=== PATIENT | female | born 1960 | race Caucasian/White ===

== ENCOUNTER → 2017-09-19 | Outpatient (CLI) | payer OTHER ==
[~2017-09-19] MED LIST: ARIP10 PO; ARIP15 PO; ASPI325 PO; ATOR40TA PO; Aspir-Trin325 MG PO; BUPR150ER; CALCA600CH PO; CETI10 PO; CITA20 PO; CLON.5 PO; CLOP75 PO; FAMO20 PO; FLUO10 PO; IBUP200 PO; LAMO100 PO; LAMO25 PO; LISI5 PO; METO25 PO; METO50ER PO; NICO14TP; NICO21TP TOP; NITR.4SL SL; OMEPRAZOLE MAGN20 MG PO; OXYACE7.5T PO; PENVK250 PO; PROM25 PO; ROSU5 PO; RXOXYACE PO; RXPENVK250 PO; UKNOWN BP MED PO; Zantac150 MG PO
== END | disposition home or self-care (01) ==
LOC: LAB SHORT 12:35 → LAB 12:35
DX: N61.1 Abscess of the breast and nipple (principal); B95.8 Unspecified staphylococcus as the cause of diseases classified elsewhere
CPT/HCPCS: 87070; 87075; 87077; 87147; 87186; 87205

== ENCOUNTER 2018-07-03 09:13 | Day surgery (SDC) | payer OTHER ==
[~2018-07-03] VITALS: Ht 165.1 cm; Wt 69.3 kg
[~2018-07-03 09:13] MED LIST changes: +ACID REDUCER 1150 MG PO; +B Complex #11 EACH PO; +METO25ER PO
--- NOTE | 2018-07-03 11:16 | NUR ---
07/03/18 1116 Jenise Rose V SIGMOID MASS FOUND AT 20CM. TATTOOD WITH 1.5CC. BXS DONE ON MASS. NOT REMOVED D/T PT BEING ON PLAVIX.
--- NOTE | 2018-07-03 11:17 | NUR ---
07/03/18 1117 Jenise Rose. PRIOR TO PROCEDURE, DR. SHAW WAS INFORMED THAT PT DID NOT STOP PLAVIX. STATED HE IS AWARE AND HAD TOLD THE PT SHE DID NOT NEED TO STOP PLAVIX.
== END 2018-07-03 11:14 | disposition home or self-care (01) ==
LOC: ORSCSDS 09:13
PROVIDERS: Surgery
PROC: 3E0H8GC Introduction of Other Therapeutic Substance into Lower GI, Via Natural or Artificial Opening Endoscopic (ICD-10-PCS; principal; 2018-07-03 10:30)
PROC: 0DBN8ZX Excision of Sigmoid Colon, Via Natural or Artificial Opening Endoscopic, Diagnostic (ICD-10-PCS; principal; 2018-07-03 10:30)
DX: Z12.11 Encounter for screening for malignant neoplasm of colon (principal); Z86.010 Personal history of colon polyps; K63.5 Polyp of colon; K57.30 Diverticulosis of large intestine without perforation or abscess without bleeding; I10 Essential (primary) hypertension; I25.10 Atherosclerotic heart disease of native coronary artery without angina pectoris; E78.5 Hyperlipidemia, unspecified; F17.210 Nicotine dependence, cigarettes, uncomplicated; Z79.899 Other long term (current) drug therapy
CPT/HCPCS: 88305; J7120

== ENCOUNTER → 2018-07-29 | Outpatient (CLI) | payer OTHER ==
[2018-07-29 10:07] LABS: Adenovirus F 40/41 Not Detected (NOT DETECT); Astrovirus Not Detected (NOT DETECT); Campylobacter Sp Not Detected (NOT DETECT); Cryptosporidium Not Detected (NOT DETECT); Cyclospora Cayetanensis Not Detected (NOT DETECT); E. Coli O157 Not Detected (NOT DETECT); Entamoeba Histolytica Not Detected (NOT DETECT); Enteroaggregative E. coli-EAEC Not Detected (NOT DETECT); Enteropathogenic E. coli-EPEC Not Detected (NOT DETECT); Enterotoxigenic E. coli-ETEC Not Detected (NOT DETECT); Giardia Lamblia Not Detected (NOT DETECT); Norovirus GI/GII Not Detected (NOT DETECT); Plesiomonas Shigelloides Not Detected (NOT DETECT); Rotavirus A Not Detected (NOT DETECT); Salmonella Sp Not Detected (NOT DETECT); Sapovirus Not Detected (NOT DETECT); Shiga Toxin-prod E. coli-STEC Not Detected (NOT DETECT); Shigella/Enteroin E. coli-EIEC Not Detected (NOT DETECT); Vibrio Cholerae Not Detected (NOT DETECT); Vibrio Sp Not Detected (NOT DETECT); Yersinia Enterocolitica Not Detected (NOT DETECT)
== END | disposition home or self-care (01) ==
LOC: LAB 07:39 → LAB SHORT 07:39 → LAB FUT 07-28 13:50
PROVIDERS: Nurse Practitioner Family
DX: R10.9 Unspecified abdominal pain (principal); R19.7 Diarrhea, unspecified
CPT/HCPCS: 87507

== ENCOUNTER → 2018-08-15 | Outpatient (CLI) | payer OTHER ==
[2018-08-15 07:57] LABS: BASOPHILS ABSOLUTE AUTO 0.02 K/mm3 (0.00-0.23); BASOPHILS PERCENT AUTO 0 % (0-2); EOSINOPHILS ABSOLUTE AUTO 0.04 K/mm3 (0.00-0.68); EOSINOPHILS PERCENT AUTO 0 % (0-6); Hemoglobin 16.5 g/dL (11.5-16.0); IMMATURE GRAN ABSOLUTE AUTO 0.03 K/mm3 (0.00-0.10); IMMATURE GRAN PERCENT AUTO 0 % (0-1); LYMPHOCYTES ABSOLUTE AUTO 1.91 K/mm3 (0.84-5.20); LYMPHOCYTES PERCENT AUTO 21 % (21-46); MONOCYTES ABSOLUTE AUTO 0.91 K/mm3 (0.16-1.47); MONOCYTES PERCENT AUTO 10 % (4-13); Mean Corpuscular HGB 33.2 pg (26.0-34.0); Mean Corpuscular HGB Conc 35.9 g/dL (31.5-36.5); Mean Corpuscular Volume 93 fL (80-100); Mean Platelet Volume 9.3 fL (9.1-12.4); NEUTROPHILS ABSOLUTE AUTO 6.41 K/mm3 (1.96-9.15); NEUTROPHILS PERCENT AUTO 69 % (41-73); Platelet Count 277 K/mm3 (150-400); RDW Coefficient Variation 12.1 % (11.7-14.2); Red Blood Cell Count 4.97 M/mm3 (3.80-5.20); White Blood Cell Count 9.32 K/mm3 (4.00-11.30)
[2018-08-15 07:59] LABS: White Blood Cells, Urine Not Seen /hpf (0-5)
[2018-08-15 08:00] LABS: Bacteria Not Seen /hpf; Squamous Epithelial Cells Mod /hpf (Few)
[2018-08-15 08:12] LABS: Alanine Aminotransfer (ALT/SGP 27 U/L (12-78); Albumin, Blood 3.8 g/dL (3.4-5.0); Alk Phos 69 U/L (40-126); Anion Gap 12 mmol/L (6-16); Aspartate Aminotrans (AST/SGOT 14 U/L (12-37); Blood Urea Nitrogen 9 mg/dL (8-24); Bun/Creatinine Ratio 13.6 (12.0-20.0); CO2, Blood 25 mmol/L (21-32); Calcium, Blood 8.9 mg/dL (8.5-10.1); Chloride, Blood 101 mmol/L (98-108); Creatinine, Blood 0.66 mg/dL (0.40-1.00); Globulin, Blood 3.8 g/dL (2.2-4.0); Glomerular Filtration Rate >60 (60-); Glucose, Blood 105 mg/dL (70-99); Potassium, Blood 3.8 mmol/L (3.5-5.5); Sodium, Blood 138 mmol/L (136-145); Total Protein, Blood 7.6 g/dL (6.4-8.2)
== END | disposition home or self-care (01) ==
LOC: LAB SHORT 07:47 → LAB EV 07:47
PROVIDERS: General Practice
DX: R31.9 Hematuria, unspecified (principal); R10.9 Unspecified abdominal pain
CPT/HCPCS: 80053; 81015; 85025

== ENCOUNTER 2019-01-05 14:35 | Inpatient (IN) | payer OTHER ==
[~2019-01-05] VITALS: Ht 165.1 cm; Wt 70.8 kg
[~2019-01-05 14:35] MED LIST changes: +Bactrim Ds Tab1 EACH PO; +CETI5 PO; +THERA1 EACH PO
--- NOTE | 2019-01-07 07:48 | NUR ---
History, Chart, Medications and Allergies reviewed before start of procedure. Patient confirms NPO status and agrees with scheduled surgery. PT STATES SHE DID BOWEL CLEAN OUT INSTRUCTED.
--- NOTE | 2019-01-07 09:29 | NUR ---
Lungs clear T/O to Auscultation. DUONEB GIVEN PER ORDER PT HAS SMOKING HX, QUIT 11/29/18, HAS NICOTINE PATCH ON LOWER BACK, DR DAVIES AWARE. PT WAS UP TO VOID PRIOR TO GOING BACK TO THE OR. LR BOLUS OF 1000 ML GIVEN WHILE IV LINE WAS TKO, DR DAVIES AWARE, NEW LR BAG HUNG.
--- NOTE | 2019-01-07 14:46 | NUR ---
1430-DECREASED SENSATION FROM LOW ABD TO KNEES. STATES PAIN BETTER AFTER EPIDURAL BOLUS GIVEN.
--- NOTE | 2019-01-07 15:13 | NUR ---
PT ARRIVED TO ROOM 213 FROM PACU S/P LAP HAND COLECTOMY PT HAS SOME OOZING TO UMBILICUS WILL PLACE GAUZE DRESSING LINA FULL EMPTIED 60 ML SANG DRAINAGE PT LIPS DRY AND CRACKED LIP OINT PLACED PT STATED DR SHARP SAID SHE COULD HAVE ICE CHIPS PT IS NPO WILL CALL AND CHECK WITH DR SHARP PT RATES PAIN 3/10WITH EPIDURAL REPACKER PT HAS NUMBNESS TO HER THIGHS BILAT. NO NAUSEA AT THIS TIME PT HAS PROVENA WOUND VAC TRANVERSE TO LOWER ABD CDI PT ORIENTED TO ROOM LAYOUT
--- NOTE | 2019-01-07 16:00 | NUR ---
PT OK TO HAVE ICE CHIPS PER DR SHARP
--- NOTE | 2019-01-07 17:45 | NUR ---
DR SHRAP BY TO SEE PT
[2019-01-08 05:08] LABS: BASOPHILS ABSOLUTE AUTO 0.02 K/mm3 (0.00-0.23); BASOPHILS PERCENT AUTO 0 % (0-2); EOSINOPHILS ABSOLUTE AUTO 0.02 K/mm3 (0.00-0.68); EOSINOPHILS PERCENT AUTO 0 % (0-6); Hematocrit 39.1 % (33.0-51.0); Hemoglobin 13.4 g/dL (11.5-16.0); IMMATURE GRAN ABSOLUTE AUTO 0.03 K/mm3 (0.00-0.10); IMMATURE GRAN PERCENT AUTO 0 % (0-1); LYMPHOCYTES ABSOLUTE AUTO 2.32 K/mm3 (0.84-5.20); LYMPHOCYTES PERCENT AUTO 22 % (21-46); MONOCYTES ABSOLUTE AUTO 1.17 K/mm3 (0.16-1.47); MONOCYTES PERCENT AUTO 11 % (4-13); Mean Corpuscular HGB 33.7 pg (26.0-34.0); Mean Corpuscular HGB Conc 34.3 g/dL (31.5-36.5); Mean Corpuscular Volume 98 fL (80-100); Mean Platelet Volume 9.4 fL (9.1-12.4); NEUTROPHILS ABSOLUTE AUTO 6.78 K/mm3 (1.96-9.15); NEUTROPHILS PERCENT AUTO 66 % (41-73); Platelet Count 250 K/mm3 (150-400); RDW Coefficient Variation 13.1 % (11.7-14.2); RDW Standard Deviation 47.5 fL (35.1-46.3); Red Blood Cell Count 3.98 M/mm3 (3.80-5.20); White Blood Cell Count 10.34 K/mm3 (4.00-11.30)
[2019-01-08 05:28] LABS: Anion Gap 6 mmol/L (6-16); Blood Urea Nitrogen 8 mg/dL (8-24); Bun/Creatinine Ratio 15.3 (12.0-20.0); CO2, Blood 27 mmol/L (21-32); Chloride, Blood 108 mmol/L (98-108); Creatinine, Blood 0.52 mg/dL (0.40-1.00); Glomerular Filtration Rate >60 (60-); Glucose, Blood 95 mg/dL (70-99); Potassium, Blood 4.1 mmol/L (3.5-5.5); Sodium, Blood 141 mmol/L (136-145)
--- NOTE | 2019-01-08 06:08 | NUR ---
SHIFT SUMMARY: PT POD #1 FOR LAP SIGMOID COLECTOMY. A&O X4. BP LOW T/O SHIFT WITH SYSTOLIC IN LOW 90'S. HR STABLE. PT AFEBRILE. EPIDURAL INTACT. PAIN ALSO MANAGED WITH SCHEDULED NEURONTIN AND TYLENOL. PT REPORTS RIGHT LEG IS COMPLETELY NUMB. GROSS MOVEMENT. PT REPOSITIONED ON RIGHT SIDE. PROVENA WOUND VAC IN PLACE WITH FOAM COMPRESSED. NO DRG NOTED. LINA DRAIN IN RLQ WITH SANGUINOUS FLUID. PUENTE DRAINING CLEAR YELLOW URINE. ADEQUATE URINE OUTPUT. PT REPORTS PASSING SOME GAS THIS MORNING. ACTIVE BT. TOLERATING ICE CHIPS. DENIES N/V.
--- NOTE | 2019-01-08 07:26 | NUR ---
ANESTHESIOLOGIST ROUNDING ON PT, PT REPORTING NUMBNESS, INABILITY TO MOVE LEFT LEG
--- NOTE | 2019-01-08 07:30 | NUR ---
RECVD VERBAL ORDERS TO SLOW CONTINUOUS EPIDURAL RATE TO 6 ML P HR FROM ANESTHESIOLOGIST, COMPLETED RATE TO 6 ML, AWAITING WRITTEN ORDERS
--- NOTE | 2019-01-08 07:45 | NUR ---
dr santana to round in pt
--- NOTE | 2019-01-08 15:27 | NUR ---
completed q1 epdiural vs/assessment. vss. l leg remains numb, very slight feeling developing in toes, able to wiggle toes but unable to lift leg
--- NOTE | 2019-01-08 16:01 | NUR ---
using two nursing staff members, gait belt and fww, pt up to chair, unable to move L leg. reported pain at 5/[address] santana called for update, ordered 500 ml bolus which this RN began with fluids currently running. dr also requested this RN to update Dr Lopez of continued numbness in L leg and SBP continuing to rest at 98-105, possibly to reduced continuous rate to 4 ml/hr
--- NOTE | 2019-01-08 16:41 | NUR ---
SHIFT SUMMARY: PT REMAINED A/O X 4, PLEASANT/COOPERATIVE, TOLERATED CLEAR LIQUID DIET WITH NO N/V. PUENTE CATHETER REMAINED PATENT/DRAINING CLEAR PALE YELLOW URINE. EPIDURAL REMAINED IN PLACE, DRESSING C/D/I, PAIN CONTROLLED TO AT STATED 4-5/10. DR DAVIES AND DR SHARP IN TO SEE PT, EACH CALLING TO CHECK UP ON PT FOLLOWING ROUNDING, ORDERS RECEIVED FOR MODIFICATIONS OF EPIDURAL AND FLUIDS R/T SBP REMAINING BETWEEN 95-100. PT RECEIVED BOLUS 500 ML OF FLUIDS AND DECREASED CONTINUOUS RATE EPIDURAL, CURRENTLY ORDERED AT 3 ML/HR. WILL REASSESS PT'S PAIN LEVEL AND SBP. PT'S L LEG REMAINED NUMB T/O SHIFT, NO GROSS MOVEMENT, HAS REGAINED SOME SLIGHT FINE MOTOR MOVEMENT IN TOES. PT UP TO CHAIR WITH GAIT BELT/FWW AND TWO PERSON NURSING ASSIST. PT RECEIVED VISITORS X 5 THIS SHIFT.
[2019-01-09 04:28] LABS: BASOPHILS ABSOLUTE AUTO 0.02 K/mm3 (0.00-0.23); BASOPHILS PERCENT AUTO 0 % (0-2); EOSINOPHILS ABSOLUTE AUTO 0.07 K/mm3 (0.00-0.68); EOSINOPHILS PERCENT AUTO 1 % (0-6); Hematocrit 37.2 % (33.0-51.0); Hemoglobin 12.2 g/dL (11.5-16.0); IMMATURE GRAN ABSOLUTE AUTO 0.02 K/mm3 (0.00-0.10); IMMATURE GRAN PERCENT AUTO 0 % (0-1); LYMPHOCYTES ABSOLUTE AUTO 3.04 K/mm3 (0.84-5.20); LYMPHOCYTES PERCENT AUTO 41 % (21-46); MONOCYTES ABSOLUTE AUTO 0.63 K/mm3 (0.16-1.47); MONOCYTES PERCENT AUTO 9 % (4-13); Mean Corpuscular HGB 32.8 pg (26.0-34.0); Mean Corpuscular HGB Conc 32.8 g/dL (31.5-36.5); Mean Corpuscular Volume 100 fL (80-100); Mean Platelet Volume 9.2 fL (9.1-12.4); NEUTROPHILS ABSOLUTE AUTO 3.61 K/mm3 (1.96-9.15); NEUTROPHILS PERCENT AUTO 49 % (41-73); Platelet Count 199 K/mm3 (150-400); RDW Standard Deviation 48.4 fL (35.1-46.3); Red Blood Cell Count 3.72 M/mm3 (3.80-5.20); White Blood Cell Count 7.39 K/mm3 (4.00-11.30)
[2019-01-09 04:42] LABS: Anion Gap 2 mmol/L (6-16); Blood Urea Nitrogen 5 mg/dL (8-24); CO2, Blood 29 mmol/L (21-32); Calcium, Blood 7.7 mg/dL (8.5-10.1); Chloride, Blood 110 mmol/L (98-108); Glomerular Filtration Rate >60 (60-); Glucose, Blood 88 mg/dL (70-99); Potassium, Blood 3.6 mmol/L (3.5-5.5); Sodium, Blood 141 mmol/L (136-145)
--- NOTE | 2019-01-09 06:49 | NUR ---
SHIFT SUMMARY: PT POD #2 FOR SIGMOID COLECTOMY. PAIN MANAGED WITH EPIDURAL AND SCHED TYLENOL AND GABAPENTIN. LEFT LEG REMAINS NUMB, HOWEVER ABLE TO FEEL PRESSURE AND IS GAINING SOME STRENGTH. PT KRISTOPHER CLR LIQ DIET. DENIES N/V. PUENTE DRAINING CLEAR YELLOW URINE. LINA TO RLQ DRAINING SS FLUID. BP MAINTAINED AT 95 FOR SYSTOLIC. FLUIDS INFUSING.
--- NOTE | 2019-01-09 07:33 | NUR ---
recvd report from previous shift yasmani yen, dr rea and esther in room to round. dr rea removed epidural, orders from dr santana for full liquid diet and po analgesia received. pt a/o x 4, pleasant/cooperative
--- NOTE | 2019-01-09 16:47 | NUR ---
shift summary: vss, no acute changes, pt remained a/o x 4, pleasant/cooperative. L leg regaining sensation and movement, pt states it is still heavy and numb, but she is able to "feel" to stand and support herself. marte catheter out wnl, pt urinating >500 ml clear yellow urine. pt states pain controlled per MAR. pt tolerating full liquid diet with no n/v, passing flatus but states this is decreased from when she was taking clears.
[2019-01-10 04:31] LABS: BASOPHILS ABSOLUTE AUTO 0.02 K/mm3 (0.00-0.23); BASOPHILS PERCENT AUTO 0 % (0-2); EOSINOPHILS ABSOLUTE AUTO 0.13 K/mm3 (0.00-0.68); EOSINOPHILS PERCENT AUTO 2 % (0-6); Hematocrit 41.6 % (33.0-51.0); Hemoglobin 13.9 g/dL (11.5-16.0); IMMATURE GRAN ABSOLUTE AUTO 0.02 K/mm3 (0.00-0.10); IMMATURE GRAN PERCENT AUTO 0 % (0-1); LYMPHOCYTES ABSOLUTE AUTO 2.16 K/mm3 (0.84-5.20); LYMPHOCYTES PERCENT AUTO 27 % (21-46); MONOCYTES PERCENT AUTO 10 % (4-13); Mean Corpuscular HGB 32.9 pg (26.0-34.0); Mean Corpuscular HGB Conc 33.4 g/dL (31.5-36.5); Mean Corpuscular Volume 99 fL (80-100); Mean Platelet Volume 9.3 fL (9.1-12.4); NEUTROPHILS ABSOLUTE AUTO 4.76 K/mm3 (1.96-9.15); NEUTROPHILS PERCENT AUTO 60 % (41-73); Platelet Count 222 K/mm3 (150-400); RDW Coefficient Variation 12.7 % (11.7-14.2); RDW Standard Deviation 46.1 fL (35.1-46.3); Red Blood Cell Count 4.22 M/mm3 (3.80-5.20); White Blood Cell Count 7.89 K/mm3 (4.00-11.30)
--- NOTE | 2019-01-10 04:48 | NUR ---
SHIFT SUMMARY: PT POD #3 FOR SIGMOID COLECTOMY. VS WNL T/O SHIFT. PAIN MANAGED WITH 2 HIRAM PER EMAR AND SCHED TYLENOL + GABAPENTIN. ACTIVE BT X4. ABD SOFT WITH MOD DISTENTION. PT REPORTS PASSING GAS. PT KRISTOPHER WATER THROUGHOUT NIGHT. DENIES N/V. WILL RESTART FULL LIQ DIET THIS MORNING FOR BREAKFAST. PT NOW HAS COMPLETE SENSATION BACK SINCE D/C OF EPIDURAL. OOB TO BSC WITH ONE ASSIST. VOIDING SMALL AMOUNT OF CLEAR YELLOW URINE EACH TIME. LITTLE PROGRESS IN STRENGTH. LINA DRAINING SS FLUID. SALINE LOCKED.
--- NOTE | 2019-01-10 19:30 | NUR ---
SHIFT SUMMARY PT A&OX4, VSS. POD3 LAP COLECTOMY, LINA WITH SEROSANG. PAIN MANAGED WITH 10 MG OXY. KRISTOPHER PO, DENIES N&V. AMB INDEPENDENT TO [facility] WITH , WHO STAYS AT BEDSIDE. VOIDING WELL. BM TODAY. REPORT TO CINDY WILLOUGHBY.
--- NOTE | 2019-01-11 06:20 | NUR ---
LYING IN SEMI FOWLERS WITH EYES CLOSED. HAS RESTED WELL SINCE START OF SHIFT. RESPIRATIONS EVEN AND UNLABORED AT THIS TIME. DENIES PAIN, DISCOMFORT, OR FURTHER NEEDS AT THIS TIME. SAFETY MEASURES IN PLACE. WILL GIVE HAND OFF TO ONCOMING SHIFT USING SBAR.
[2019-01-11] MEDS ORDERED: OXYC5 PO (13:31)
--- NOTE | 2019-01-11 15:45 | NUR ---
PT ABLE TO TOLERATE REG DIET, HAS HAD [address] SHAW SAW PT, DC'D LINA DRAIN AND WROTE DC ORDERS. PT TO DC WITH PRAVENA WOUND VAC. EDUCATION GIVEN. DC PACKET PRINTED, PT AND PT VERBALIZED UNDERSTANDING OF DC INSTRUCTIONS. SCRIPT SENT WITH PT. PT LEFT UNIT IN WHEEL CHAIR WITH AND BERENICE GREENE.
== END 2019-01-11 14:05 | disposition home or self-care (01) | DRG 331 ==
LOC: SURS 01-07 07:24 → PRE IP 01-07 09:15 → SURS 01-07 15:06
PROVIDERS: ADMIT Surgery
PROC: 0DTN4ZZ Resection of Sigmoid Colon, Percutaneous Endoscopic Approach (ICD-10-PCS; principal; 2019-01-07 09:15)
DX: K57.92 Diverticulitis of intestine, part unspecified, without perforation or abscess without bleeding (principal); D12.5 Benign neoplasm of sigmoid colon
CPT/HCPCS: 36415; 80048; 85025; 86850; 86900; 86901; 88307; 94667; A9270; C9113; J0690; J1100; J1650; J2250; J2370; J2405; J2704; J2765; J3010; J7120

== ENCOUNTER → 2019-01-28 | Outpatient (CLI) | payer OTHER ==
[~2019-01-28] MED LIST changes: +OXYC5 PO
[2019-01-28 14:21] LABS: Source, Urine Clean Catch
[2019-01-28 15:14] LABS: Bilirubin, Urine Neg (Neg); Blood, Urine 5+ (Neg); Glucose Qualitative, Urine Neg (Neg); Ketones, Urine Neg (Neg); Leukocyte Esterase, Urine Neg (Neg); Nitrite, Urine Neg (Neg); Protein, Urine Neg (Neg); Urobilinogen, Urine NORM (Normal)
[2019-01-28 15:35] LABS: Appearance, Urine Clear (Clear); Color, Urine Yellow (P-Yellow)
[2019-01-28 15:36] LABS: Bacteria Few /hpf; Squamous Epithelial Cells Few /hpf (Few); White Blood Cells, Urine 0-2 /hpf (0-5); Yeast/Fungi Urine Few /hpf
== END | disposition home or self-care (01) ==
LOC: LAB SHORT 14:20 → LAB 14:20
PROVIDERS: Surgery
DX: R30.9 Painful micturition, unspecified (principal); R39.11 Hesitancy of micturition
CPT/HCPCS: 81001

== ENCOUNTER → 2019-02-21 | Outpatient (CLI) | payer OTHER ==
[2019-02-21 15:34] LABS: Candida species (DNA Probe) Positive (NEGATIVE); G. vaginalis (DNA Probe) Negative (NEGATIVE); T. vaginalis (DNA Probe) Negative (NEGATIVE)
== END | disposition home or self-care (01) ==
LOC: LAB SHORT 11:00 → LAB 11:00
PROVIDERS: Family Medicine
DX: N89.8 Other specified noninflammatory disorders of vagina (principal)
CPT/HCPCS: 87480; 87510; 87660

== ENCOUNTER 2020-01-17 18:02 | Observation (INO) | payer OTHER ==
[~2020-01-17] VITALS: Ht 165.1 cm; Wt 82.5 kg
[~2020-01-17 18:02] MED LIST changes: +ALLEGRA ALLERG180 MG PO; +ASPIR 8181 MG PO; -Aspir-Trin325 MG PO; -CETI5 PO
[2020-01-17] MEDS ORDERED: Chantix1 MG PO (19:18)
[2020-01-17] MEDS ORDERED: Nicoderm Cq1 EACH TOP (19:18)
[2020-01-17 19:22] LABS: BASOPHILS ABSOLUTE AUTO 0.04 K/mm3 (0.00-0.23); BASOPHILS PERCENT AUTO 1 % (0-2); EOSINOPHILS ABSOLUTE AUTO 0.13 K/mm3 (0.00-0.68); EOSINOPHILS PERCENT AUTO 2 % (0-6); Hematocrit 52.1 % (33.0-51.0); Hemoglobin 18.1 g/dL (11.5-16.0); IMMATURE GRAN ABSOLUTE AUTO 0.03 K/mm3 (0.00-0.10); IMMATURE GRAN PERCENT AUTO 0 % (0-1); LYMPHOCYTES ABSOLUTE AUTO 3.49 K/mm3 (0.84-5.20); LYMPHOCYTES PERCENT AUTO 42 % (21-46); MONOCYTES PERCENT AUTO 10 % (4-13); Mean Corpuscular HGB 32.4 pg (26.0-34.0); Mean Corpuscular HGB Conc 34.7 g/dL (31.5-36.5); Mean Corpuscular Volume 93 fL (80-100); Mean Platelet Volume 8.9 fL (9.1-12.4); NEUTROPHILS ABSOLUTE AUTO 3.74 K/mm3 (1.96-9.15); NEUTROPHILS PERCENT AUTO 45 % (41-73); Platelet Count 302 K/mm3 (150-400); RDW Coefficient Variation 12.3 % (11.7-14.2); RDW Standard Deviation 42.5 fL (35.1-46.3); Red Blood Cell Count 5.58 M/mm3 (3.80-5.20); White Blood Cell Count 8.23 K/mm3 (4.00-11.30)
[2020-01-17 19:45] LABS: Alanine Aminotransfer (ALT/SGP 62 U/L (12-78); Albumin, Blood 3.6 g/dL (3.4-5.0); Albumin/Globulin Ratio 0.9 (0.8-1.8); Alk Phos 74 U/L (50-136); Anion Gap 9 mmol/L (6-16); Aspartate Aminotrans (AST/SGOT 36 U/L (12-37); Bilirubin, Total 0.4 mg/dL (0.1-1.0); Blood Urea Nitrogen 12 mg/dL (8-24); Bun/Creatinine Ratio 18.8 (12.0-20.0); CO2, Blood 25 mmol/L (21-32); Calcium, Blood 8.6 mg/dL (8.5-10.1); Chloride, Blood 106 mmol/L (98-108); Creatinine, Blood 0.64 mg/dL (0.40-1.00); Globulin, Blood 3.8 g/dL (2.2-4.0); Glomerular Filtration Rate >60 (60-); Glucose, Blood 122 mg/dL (70-99); Potassium, Blood 3.7 mmol/L (3.5-5.5); Sodium, Blood 140 mmol/L (136-145); Total Protein, Blood 7.4 g/dL (6.4-8.2); Troponin I <0.015 ng/mL (0.000-0.040)
[2020-01-17] MEDS ORDERED: LOSARTAN POTASS25 M2 PO (20:53)
[2020-01-17] MEDS ORDERED: METO25ER PO (20:58)
[2020-01-17] MEDS ORDERED: ABILIFY MYCITE15 MG PO (20:58)
[2020-01-17] MEDS ORDERED: ABAT250V (22:48)
[2020-01-17] MEDS ORDERED: NICO21TP TOP (22:48)
--- NOTE | 2020-01-18 04:15 | NUR ---
T/F AND SUMMARY: REPORT RECIEVED FROM ARMIDA (SPANISH INTERPRETER) AND PT T/F TO ROOM 305 VIA AMIE AT 2224. SHE WAS ORIENTED TO ROOM AND CALL SYSTEM AND WAS AWARE TO CALL FOR ANY S/S CARDIAC DISTRESS. SHE'S A/OX4 AND INDEPENDENT IN ROOM. TELEMETRY COMMENCED AND PT IS NSR AT 80'S-90'S BPM W/O ECTOPIES. TROPS HAVE REMAINED (-) W/ECHO SCHEDULED THIS AM. SHE HAS DENIED PAIN, CP, RADIATING PAIN, NAUSEA AND ALL OTHER S/S DISTRESS. PT VOIDING W/O DIFFICULTY AND HAS SLEPT MAJORITY OF NOCTE. NO ACUTE CHANGES. WCTM AND REPORT TO DAY RN.
--- NOTE | 2020-01-18 04:36 | NUR ---
PT C/O CHEST TIGHTNESS THAT CAME ON MOMENTARILY AGO AFTER AMBULATING TO THE TOILET. SHE ADMITS THAT IT COMES IN WAVES LASTING APPROX 1-2 MINS AT A TIME W/SOB ACCOMPANYING IT AND MILD ACHING TO BILAT BICEPS. NTG RECIEVED PRN AT 0430 AND SHE ADMITS THAT SYMPTOMS HAVE NOW IMPROVED. SHE ADMITTE TO FEELING FLUSH IMMEDIATELY AFTER NTG. NO ECTOPIES NOTED PER TELEMETRY AND PT REMAINED IN NSR T/O EVENT. CERTIFIED ADAPTIVE PHYSICAL EDUCATOR, CAROLYNN EATON MADE AWARE AND PERFORMING EKG AT THIS TIME. VSS. WILL ALERT MD OF EVENT.
--- NOTE | 2020-01-18 04:42 | NUR ---
EKG COMPLETED AND SHOWS NSR AT 85 BPM, NO OBSERVABLE CHANGES FROM PREVIOUS.
--- NOTE | 2020-01-18 04:52 | NUR ---
MADE AWARE OF BRIEF EPISODE OF CHEST TIGHTNESS, SOB AND BICEP PAIN. RN RELAYED STAT EKG RESULT, NTG RECIEVED AND RESOLUTION OF SYMPTOMS. NO NEW ORDERS RECIEVED AND SHE INSTRUCTED STAFF TO NOTIFY MD OF ANY CHANGES/WORSENING AND TO AWAIT ECHO RESULTS THIS AM.
[2020-01-18 06:59] LABS: BASOPHILS ABSOLUTE AUTO 0.02 K/mm3 (0.00-0.23); BASOPHILS PERCENT AUTO 0 % (0-2); EOSINOPHILS ABSOLUTE AUTO 0.13 K/mm3 (0.00-0.68); EOSINOPHILS PERCENT AUTO 2 % (0-6); Hematocrit 45.8 % (33.0-51.0); Hemoglobin 15.8 g/dL (11.5-16.0); IMMATURE GRAN ABSOLUTE AUTO 0.02 K/mm3 (0.00-0.10); IMMATURE GRAN PERCENT AUTO 0 % (0-1); LYMPHOCYTES ABSOLUTE AUTO 3.01 K/mm3 (0.84-5.20); LYMPHOCYTES PERCENT AUTO 40 % (21-46); MONOCYTES ABSOLUTE AUTO 0.91 K/mm3 (0.16-1.47); MONOCYTES PERCENT AUTO 12 % (4-13); Mean Corpuscular HGB 32.6 pg (26.0-34.0); Mean Corpuscular HGB Conc 34.5 g/dL (31.5-36.5); Mean Corpuscular Volume 94 fL (80-100); Mean Platelet Volume 8.8 fL (9.1-12.4); NEUTROPHILS PERCENT AUTO 45 % (41-73); Platelet Count 252 K/mm3 (150-400); RDW Coefficient Variation 12.3 % (11.7-14.2); RDW Standard Deviation 42.5 fL (35.1-46.3); Red Blood Cell Count 4.85 M/mm3 (3.80-5.20); White Blood Cell Count 7.49 K/mm3 (4.00-11.30)
[2020-01-18 07:19] LABS: Anion Gap 5 mmol/L (6-16); Blood Urea Nitrogen 9 mg/dL (8-24); Bun/Creatinine Ratio 14.8 (12.0-20.0); CO2, Blood 27 mmol/L (21-32); Calcium, Blood 8.1 mg/dL (8.5-10.1); Chloride, Blood 107 mmol/L (98-108); Creatinine, Blood 0.61 mg/dL (0.40-1.00); Glomerular Filtration Rate >60 (60-); Glucose, Blood 98 mg/dL (70-99); Potassium, Blood 3.9 mmol/L (3.5-5.5); Sodium, Blood 139 mmol/L (136-145); Troponin I <0.015 ng/mL (0.000-0.040)
--- NOTE | 2020-01-18 08:30 | NUR ---
NTG NOT GIVEN PRESSURE WENT FROM 3 TO 1(1-10) IN ABOUT 3 MINUTES. WCTM
--- NOTE | 2020-01-18 16:55 | NUR ---
ALERT. ORIENTED. UNLABORED RESPIRATIONS. HAS HAD SOME CHEST PRESSURE INFREQUENTLY 1(1-10). INDEPENDENT IN ROOM. STAEDY GAIT. AWAITING ECHO RESULTS AND WILL POSSIBLY D'C TODAY. TM
--- NOTE | 2020-01-18 19:41 | NUR ---
REPORT RECIEVED BUT PT HAS D/C ORDERS THAT WERE RECENTLY PLACED. MANAGER DELIVERY WORKING ON D/C AT THIS TIME. PT AND FAMILY AWARE AND WAITING IN ROOM PATIENTLY FOR PAPERWORK TO BE COMPLETED. NO S/S DISTRESS.
[2020-01-18] MEDS ORDERED: PANT40 PO (19:42)
[2020-01-18] MEDS ORDERED: NITR.4SL SL (19:42)
[2020-01-18] MEDS ORDERED: ALLEGRA ALLERG180 MG PO (19:43)
== END 2020-01-18 20:11 | disposition home or self-care (01) ==
LOC: ER 18:02 → MEDS 18:03
PROVIDERS: Physician Assistant; ADMIT Internal Medicine
DX: R07.9 Chest pain, unspecified (principal); I25.10 Atherosclerotic heart disease of native coronary artery without angina pectoris; I10 Essential (primary) hypertension; R06.02 Shortness of breath; Z88.0 Allergy status to penicillin; Z88.8 Allergy status to other drugs, medicaments and biological substances; Z79.82 Long term (current) use of aspirin; Z79.899 Other long term (current) drug therapy; Z95.5 Presence of coronary angioplasty implant and graft; E78.00 Pure hypercholesterolemia, unspecified; F41.9 Anxiety disorder, unspecified; K21.9 Gastro-esophageal reflux disease without esophagitis; F17.210 Nicotine dependence, cigarettes, uncomplicated; Z71.6 Tobacco abuse counseling; D75.1 Secondary polycythemia
CPT/HCPCS: 36415; 71046; 80048; 80053; 83880; 84484; 85025; 93005; 93010; 93306; 96372; 99285-25; A9270-GY; G0378; J1650

== ENCOUNTER → 2020-09-16 | Outpatient (CLI) | payer OTHER ==
[~2020-09-16] MED LIST changes: +ABAT250V; +ABILIFY MYCITE15 MG PO; +Chantix1 MG PO; +LOSARTAN POTASS25 M2 PO; +Nicoderm Cq1 EACH TOP; +PANT40 PO
== END | disposition home or self-care (01) ==
LOC: LAB SHORT 09:00 → LAB 09:00
DX: R35.0 Frequency of micturition (principal)
CPT/HCPCS: 87086

== ENCOUNTER → 2020-10-21 | Outpatient (CLI) | payer OTHER | END | disposition home or self-care (01) | LOC: LAB SHORT 08:30 | DX: R31.9 Hematuria, unspecified (principal) | CPT/HCPCS: 87086 ==

== ENCOUNTER 2022-01-15 21:15 | Inpatient (IN) | payer OTHER ==
[~2022-01-15] VITALS: Ht 165.1 cm; Wt 90.0 kg
[2022-01-15 21:45] LABS: BASOPHILS ABSOLUTE AUTO 0.04 K/mm3 (0.00-0.23); BASOPHILS PERCENT AUTO 0 % (0-2); EOSINOPHILS ABSOLUTE AUTO 0.07 K/mm3 (0.00-0.68); EOSINOPHILS PERCENT AUTO 1 % (0-6); Hematocrit 47.2 % (33.0-51.0); IMMATURE GRAN ABSOLUTE AUTO 0.03 K/mm3 (0.00-0.10); IMMATURE GRAN PERCENT AUTO 0 % (0-1); LYMPHOCYTES PERCENT AUTO 15 % (21-46); MONOCYTES ABSOLUTE AUTO 1.16 K/mm3 (0.16-1.47); MONOCYTES PERCENT AUTO 12 % (4-13); Mean Corpuscular HGB 31.8 pg (26.0-34.0); Mean Corpuscular HGB Conc 33.9 g/dL (31.5-36.5); Mean Corpuscular Volume 94 fL (80-100); Mean Platelet Volume 9.7 fL (9.1-12.4); NEUTROPHILS ABSOLUTE AUTO 6.94 K/mm3 (1.96-9.15); NEUTROPHILS PERCENT AUTO 71 % (41-73); Platelet Count 222 K/mm3 (150-400); RDW Coefficient Variation 13.2 % (11.7-14.2); RDW Standard Deviation 45.3 fL (35.1-46.3); Red Blood Cell Count 5.03 M/mm3 (3.80-5.20); White Blood Cell Count 9.74 K/mm3 (4.00-11.30)
[2022-01-15 22:03] LABS: Albumin, Blood 3.1 g/dL (3.4-5.0); Albumin/Globulin Ratio 0.8 (0.8-1.8); Bilirubin, Total 0.4 mg/dL (0.1-1.0); Bun/Creatinine Ratio 12.2 (12.0-20.0); Calcium, Blood 8.2 mg/dL (8.5-10.1); Creatinine, Blood 0.41 mg/dL (0.40-1.00); Globulin, Blood 3.9 g/dL (2.2-4.0); Potassium, Blood 4.1 mmol/L (3.5-5.5)
[2022-01-15 23:20] LABS: Influenza A, PCR NEGATIVE (NEGATIVE); Influenza B, PCR NEGATIVE (NEGATIVE); Resp Syncytial Virus, PCR NEGATIVE (NEGATIVE); SARS-Cov-2 (COVID-19) PCR, MMC NEGATIVE (NEGATIVE)
[2022-01-16] MEDS ORDERED: ZOLOFT50 MG PO (03:24)
[2022-01-16] MEDS ORDERED: Ativan1 MG PO (03:25)
--- NOTE | 2022-01-16 04:11 | NUR ---
01/16/22314 Patient was admitted via stretcher from the ED. Patient is alert and oriented, pleasant and cooperative. Pt has fine expiratory wheezes anteriorly. Does have a productive cough. posterior breath sounds diminished and sl course. pt is on 2 liters O2 at this time. Pt oriented to room. Pt does have some discomfort with cough, she has been coughing for several days. Pt has trace non pitting edema in her ankles. Pt is trying to rest at this time.Call light in reach.
[2022-01-16 06:28] LABS: Bun/Creatinine Ratio 12.3 (12.0-20.0); Calcium, Blood 7.9 mg/dL (8.5-10.1); Creatinine, Blood 0.49 mg/dL (0.40-1.00); Potassium, Blood 3.9 mmol/L (3.5-5.5)
--- NOTE | 2022-01-16 07:11 | NUR ---
Rn summary: Patient c/o headache, medicated with tylenol 650 mg with minimal relief. Pt also received robitussin 10ml for cough. Patient otherwise the same, O2 2 liters. Call light in reach.
--- NOTE | 2022-01-16 07:30 | NUR ---
ASSUMED CARE: PT SITTING UPRIGHT IN BED, RT AT BEDSIDE. 2L O2 IN PLACE. ALERT AND TALKING TO STAFF DURING BEDSIDE REPORT. DENIES NEEDS OR CONCERNS AT THIS TIME.
--- NOTE | 2022-01-16 18:39 | NUR ---
SHIFT SUMMARY: PT INDEPENDENT IN ROOM. REMAINS ON 2L O2 VIA NC AND SATTING AT 91%. WILL TITRATE ABLE. DIETITIAN CAME IN TO EDUCATE PT ON DIABETES SINCE DR IS SUSPICIOUS THAT PT HAS DEVELOPED DIABETES AND IS SENSITIVE TO STEROIDS. PT DENIES NEEDS AT THIS TIME.
[2022-01-17 05:03] LABS: BASOPHILS ABSOLUTE AUTO 0.02 K/mm3 (0.00-0.23); BASOPHILS PERCENT AUTO 0 % (0-2); EOSINOPHILS PERCENT AUTO 0 % (0-6); Hematocrit 44.3 % (33.0-51.0); Hemoglobin 15.1 g/dL (11.5-16.0); IMMATURE GRAN ABSOLUTE AUTO 0.05 K/mm3 (0.00-0.10); IMMATURE GRAN PERCENT AUTO 1 % (0-1); LYMPHOCYTES PERCENT AUTO 9 % (21-46); MONOCYTES PERCENT AUTO 5 % (4-13); Mean Corpuscular HGB 32.1 pg (26.0-34.0); Mean Corpuscular HGB Conc 34.1 g/dL (31.5-36.5); Mean Corpuscular Volume 94 fL (80-100); Mean Platelet Volume 10.1 fL (9.1-12.4); NEUTROPHILS ABSOLUTE AUTO 8.28 K/mm3 (1.96-9.15); NEUTROPHILS PERCENT AUTO 85 % (41-73); Platelet Count 226 K/mm3 (150-400); RDW Coefficient Variation 13.2 % (11.7-14.2); RDW Standard Deviation 45.1 fL (35.1-46.3); White Blood Cell Count 9.75 K/mm3 (4.00-11.30)
[2022-01-17 05:48] LABS: Bun/Creatinine Ratio 22.8 (12.0-20.0); Creatinine, Blood 0.4 mg/dL (0.40-1.00); Potassium, Blood 4.5 mmol/L (3.5-5.5)
--- NOTE | 2022-01-17 06:38 | NUR ---
SHIFT SUMMARY: A/OX4, ADLIB IN ROOM AND INDEPENDENT REPOSITIONING IN BED. OCCASSIONAL DESATING O2 WHILE PATIENT IS RESTING O2 TITRATION BETWEEN 2L-4L AT REST. WHEN AWAKE PT CONTINUES TO SAT WELL ON 2L O2 NASAL CANNULA. SOME INCREASED SHORTNESS OF BREATH WITH AMBULATION. TIGHT, RHONCHI AND SLIGHT WHEEZE ON AUSCULATION OF LUNGS. PT CONTINUES TO HAVE DRY HACKING COUGH- MEDICATION WITH PRNS- REVIEW EMAR. COMPLAINT OF HEADACHE POST ADMINISTRATION OF SOLUMEDROL- PRN ACETAMINOPHEN PROVIDED RELIEF. BED IN LOW POSITION, CALL ERAZO AND BELONGINGS IN REACH, CONTIUES TO CALL APPROPRIATELY.
--- NOTE | 2022-01-17 18:21 | NUR ---
SHIFT SUMMARY PT A&OX4 AND IN PLEASENT MOOD T/O SHIFT. PT VERBALIZED CONCERN AFTER VISIT-WORRIED ABOUT PNUMONIA INFECTION NOT BEING TREATED PROPERLY STATED WBC ELEVATED, CHEST XRAY, O2SATS. ATTEMPTING TO WEAN 02, 1L NC. CALL LIGHT W/IN REACH. VSS.
--- NOTE | 2022-01-18 07:56 | NUR ---
Rn summary: Patient doing well, has non productive cough, sometimes harsh. Patient medicated x2 for cough and for headache. Pt was able to rest well after taking ativan 1mg. Pt snoring and O2 sats droppped to 83-87 on 1 L O2. She is a mouth breather. O2 increased to 4 liters while sleeping sats 91-93%. Pt will need diabetic teaching, states she was given a booklet. Call light in [place], alert and oriented.
--- NOTE | 2022-01-18 16:35 | NUR ---
SHIFT SUMMARY PT A&OX4 AND IN PLEASENT MOOD T/O SHIFT. FRIEND IN TO VISIT PT T/O VISITING HOURS. PLAN FOR LIKELY D/C TOMORROW-HOME O2 EVAL. 1L NC @ THIS TIME, PLAN TO WEAN TO RA WHILE AWAKE. CALL LIGHT W/IN REACH. VSS. IND IN ROOM. COUGH MEDICATED PRN PER EMAR.
--- NOTE | 2022-01-19 02:02 | NUR ---
Patient biox went off, it was the heart rate alarm, biox was not picking up HR due to 2 peaked pleth wave. Heart rate sounded irregular, EKG done, it showed sinus rhythm with PAC's with aberrant conduction. Pt does have history of a slow pathway ablation for atrial arrhythmia. She is on metoprolol and plavix. Pt with no distress. Placed on telemetry for tonight. Will continue to monitor. O2 was increased to 4 liters while she is sleeping to keep sats in the mid 90's.
[2022-01-19 05:20] LABS: BASOPHILS ABSOLUTE AUTO 0.02 K/mm3 (0.00-0.23); BASOPHILS PERCENT AUTO 0 % (0-2); EOSINOPHILS ABSOLUTE AUTO 0.08 K/mm3 (0.00-0.68); EOSINOPHILS PERCENT AUTO 1 % (0-6); Hematocrit 47.4 % (33.0-51.0); Hemoglobin 15.8 g/dL (11.5-16.0); IMMATURE GRAN ABSOLUTE AUTO 0.02 K/mm3 (0.00-0.10); IMMATURE GRAN PERCENT AUTO 0 % (0-1); LYMPHOCYTES ABSOLUTE AUTO 2.84 K/mm3 (0.84-5.20); LYMPHOCYTES PERCENT AUTO 37 % (21-46); MONOCYTES ABSOLUTE AUTO 0.86 K/mm3 (0.16-1.47); MONOCYTES PERCENT AUTO 11 % (4-13); Mean Corpuscular HGB 31.5 pg (26.0-34.0); Mean Corpuscular HGB Conc 33.3 g/dL (31.5-36.5); Mean Corpuscular Volume 94 fL (80-100); Mean Platelet Volume 9.7 fL (9.1-12.4); NEUTROPHILS ABSOLUTE AUTO 3.92 K/mm3 (1.96-9.15); NEUTROPHILS PERCENT AUTO 51 % (41-73); Platelet Count 259 K/mm3 (150-400); RDW Coefficient Variation 13.4 % (11.7-14.2); RDW Standard Deviation 46.5 fL (35.1-46.3); Red Blood Cell Count 5.02 M/mm3 (3.80-5.20); White Blood Cell Count 7.74 K/mm3 (4.00-11.30)
--- NOTE | 2022-01-19 05:29 | NUR ---
Rn summary: Patient has rested well tonight except for the beeping Biox machine at the beginning of shift. Patient has been on telemetry. At first pt was having freq almost bigeminal PVC"s but she has evened out to SR in the 60's. Pt feels her cough is better and the tesselon pearls have been helpful, given x2 this shift. Hopes to be DC'd today. Still needing O2 at 4 liters while sleeping to maintain O2 sats in the low to mid 90's. Call light in [facility]. Up independantly in room.
[2022-01-19 05:48] LABS: Bun/Creatinine Ratio 24.8 (12.0-20.0); Calcium, Blood 8.7 mg/dL (8.5-10.1); Creatinine, Blood 0.53 mg/dL (0.40-1.00); Potassium, Blood 3.9 mmol/L (3.5-5.5)
[2022-01-19] MEDS ORDERED: ALBU90OI INH (11:05)
[2022-01-19] MEDS ORDERED: IPRAT-ALBUT 0.5-3 ML INH (11:07)
[2022-01-19] MEDS ORDERED: PRED20 PO (11:07)
[2022-01-19] MEDS ORDERED: ANORO ELLIPTA1 EACH INH (11:08)
--- NOTE | 2022-01-19 12:30 | NUR ---
PT DISCHARGED HOME AOX4 AND COOPERATIVE OF CARE.PT INDEPENDENT IN ROOM. ALL PAPERWORK REVIEWED AND EDUCATIONAL MATERIAL SENT WITH PT. FAMILY TO TRANSPORT HOME NO DISTRESS NOTED. PT ESCORTED OUT VIA WHEEL CHAIR TO [facility] BY AID.
== END 2022-01-19 11:59 | disposition home or self-care (01) | DRG 193 ==
LOC: ER 21:15 → MEDS 01-16 01:44
PROVIDERS: Family Medicine; Internal Medicine; Physician Assistant; Student in an Organized Health Care Education/Training Program; ADMIT Family Medicine
DX: J18.9 Pneumonia, unspecified organism (principal); J96.01 Acute respiratory failure with hypoxia; J44.1 Chronic obstructive pulmonary disease with (acute) exacerbation; E87.1 Hypo-osmolality and hyponatremia; J44.0 Chronic obstructive pulmonary disease with (acute) lower respiratory infection; J98.11 Atelectasis; F17.200 Nicotine dependence, unspecified, uncomplicated; Z20.822 Contact with and (suspected) exposure to COVID-19; E11.9 Type 2 diabetes mellitus without complications; I25.10 Atherosclerotic heart disease of native coronary artery without angina pectoris; I10 Essential (primary) hypertension; E78.5 Hyperlipidemia, unspecified; K21.9 Gastro-esophageal reflux disease without esophagitis; F32.A Depression, unspecified; Z91.51 Personal history of suicidal behavior; Z98.1 Arthrodesis status; Z95.5 Presence of coronary angioplasty implant and graft; Z90.49 Acquired absence of other specified parts of digestive tract; Z90.89 Acquired absence of other organs; Z98.890 Other specified postprocedural states; Z88.0 Allergy status to penicillin; Z88.1 Allergy status to other antibiotic agents; Z79.02 Long term (current) use of antithrombotics/antiplatelets; Z79.82 Long term (current) use of aspirin; Z79.899 Other long term (current) drug therapy
CPT/HCPCS: 0241U; 36415; 71045; 80048; 80053; 82947; 83036; 83605; 83880; 84145; 84484; 85025; 87040; 93005; 93010; 94640; 94644; 94645; 94664; 94761; 94762; 96374; 96375; 99285-25; A9270; J0456; J0696; J1200; J1650; J1885; J2765; J2930; J7050; J7512

== ENCOUNTER 2022-02-07 16:55 | Emergency (ER) | payer OTHER ==
[~2022-02-07] VITALS: Ht 165.1 cm; Wt 87.1 kg
[~2022-02-07 16:55] MED LIST changes: +ALBU90OI INH; +ANORO ELLIPTA1 EACH INH; +Ativan1 MG PO; +IPRAT-ALBUT 0.5-3 ML INH; +PRED20 PO; +ZOLOFT50 MG PO
[2022-02-07 17:44] LABS: BASOPHILS ABSOLUTE AUTO 0.04 K/mm3 (0.00-0.23); BASOPHILS PERCENT AUTO 1 % (0-2); EOSINOPHILS ABSOLUTE AUTO 0.12 K/mm3 (0.00-0.68); EOSINOPHILS PERCENT AUTO 2 % (0-6); Hematocrit 46.5 % (33.0-51.0); Hemoglobin 15.9 g/dL (11.5-16.0); IMMATURE GRAN ABSOLUTE AUTO 0.02 K/mm3 (0.00-0.10); IMMATURE GRAN PERCENT AUTO 0 % (0-1); LYMPHOCYTES ABSOLUTE AUTO 2.12 K/mm3 (0.84-5.20); LYMPHOCYTES PERCENT AUTO 33 % (21-46); MONOCYTES ABSOLUTE AUTO 0.59 K/mm3 (0.16-1.47); MONOCYTES PERCENT AUTO 9 % (4-13); Mean Corpuscular HGB 31.6 pg (26.0-34.0); Mean Corpuscular HGB Conc 34.2 g/dL (31.5-36.5); Mean Corpuscular Volume 92 fL (80-100); Mean Platelet Volume 9.4 fL (9.1-12.4); NEUTROPHILS ABSOLUTE AUTO 3.61 K/mm3 (1.96-9.15); NEUTROPHILS PERCENT AUTO 56 % (41-73); Platelet Count 256 K/mm3 (150-400); RDW Coefficient Variation 13.3 % (11.7-14.2); Red Blood Cell Count 5.03 M/mm3 (3.80-5.20)
[2022-02-07 18:31] LABS: Albumin, Blood 3.5 g/dL (3.4-5.0); Albumin/Globulin Ratio 0.9 (0.8-1.8); Bilirubin, Total 0.3 mg/dL (0.1-1.0); Bun/Creatinine Ratio 15.6 (12.0-20.0); Calcium, Blood 9.1 mg/dL (8.5-10.1); Creatinine, Blood 0.64 mg/dL (0.40-1.00); Globulin, Blood 3.7 g/dL (2.2-4.0); Total Protein, Blood 7.2 g/dL (6.4-8.2)
[2022-02-07 20:57] LABS: Influenza A, PCR NEGATIVE (NEGATIVE); Influenza B, PCR NEGATIVE (NEGATIVE); Resp Syncytial Virus, PCR NEGATIVE (NEGATIVE); SARS-Cov-2 (COVID-19) PCR, MMC NEGATIVE (NEGATIVE)
[2022-02-07] MEDS ORDERED: PRED20 PO (22:57)
== END 2022-02-07 23:16 | disposition home or self-care (01) ==
LOC: ER 16:55
PROVIDERS: Emergency Medicine; Student in an Organized Health Care Education/Training Program
DX: J44.1 Chronic obstructive pulmonary disease with (acute) exacerbation (principal); I10 Essential (primary) hypertension; E78.5 Hyperlipidemia, unspecified; K21.9 Gastro-esophageal reflux disease without esophagitis; E11.9 Type 2 diabetes mellitus without complications; I25.10 Atherosclerotic heart disease of native coronary artery without angina pectoris; F17.200 Nicotine dependence, unspecified, uncomplicated; Z88.0 Allergy status to penicillin; Z88.8 Allergy status to other drugs, medicaments and biological substances; Z79.82 Long term (current) use of aspirin; Z79.899 Other long term (current) drug therapy; Z79.52 Long term (current) use of systemic steroids
CPT/HCPCS: 0241U; 36415; 71046; 80053; 82947; 83880; 84484; 85025; 85379; 93005; 93010; 94640; 94664; 96374; 99285-25; J2930

== ENCOUNTER 2023-04-19 07:26 | Emergency (ER) | payer OTHER ==
[~2023-04-19] VITALS: Ht 165.1 cm; Wt 81.7 kg
[2023-04-19 08:12] LABS: BASOPHILS ABSOLUTE AUTO 0.04 K/mm3 (0.00-0.23); BASOPHILS PERCENT AUTO 1 % (0-2); EOSINOPHILS ABSOLUTE AUTO 0.07 K/mm3 (0.00-0.68); EOSINOPHILS PERCENT AUTO 1 % (0-6); Hematocrit 49.2 % (33.0-51.0); Hemoglobin 17.3 g/dL (11.5-16.0); IMMATURE GRAN ABSOLUTE AUTO 0.03 K/mm3 (0.00-0.10); IMMATURE GRAN PERCENT AUTO 0 % (0-1); LYMPHOCYTES ABSOLUTE AUTO 1.86 K/mm3 (0.84-5.20); LYMPHOCYTES PERCENT AUTO 26 % (21-46); MONOCYTES ABSOLUTE AUTO 0.68 K/mm3 (0.16-1.47); MONOCYTES PERCENT AUTO 10 % (4-13); Mean Corpuscular HGB 33.6 pg (26.0-34.0); Mean Corpuscular HGB Conc 35.2 g/dL (31.5-36.5); Mean Corpuscular Volume 96 fL (80-100); Mean Platelet Volume 9.4 fL (9.1-12.4); NEUTROPHILS ABSOLUTE AUTO 4.51 K/mm3 (1.96-9.15); NEUTROPHILS PERCENT AUTO 63 % (41-73); Platelet Count 211 K/mm3 (150-400); RDW Coefficient Variation 12.9 % (11.7-14.2); RDW Standard Deviation 45.9 fL (35.1-46.3); Red Blood Cell Count 5.15 M/mm3 (3.80-5.20); White Blood Cell Count 7.19 K/mm3 (4.00-11.30)
[2023-04-19 08:38] LABS: Albumin, Blood 3.6 g/dL (3.4-5.0); Bilirubin, Total 0.6 mg/dL (0.1-1.0); Calcium, Blood 8.6 mg/dL (8.5-10.1); Creatinine, Blood 0.58 mg/dL (0.40-1.00); Globulin, Blood 3.7 g/dL (2.2-4.0); Potassium, Blood 4.1 mmol/L (3.5-5.5); Total Protein, Blood 7.3 g/dL (6.4-8.2)
[2023-04-19 11:30] VITALS: BP 133/74
== END 2023-04-19 12:07 | disposition home or self-care (01) ==
LOC: ER 07:26
PROVIDERS: Student in an Organized Health Care Education/Training Program
DX: R53.83 Other fatigue (principal); I10 Essential (primary) hypertension; I25.10 Atherosclerotic heart disease of native coronary artery without angina pectoris; J44.9 Chronic obstructive pulmonary disease, unspecified; E78.5 Hyperlipidemia, unspecified; E11.9 Type 2 diabetes mellitus without complications; K21.9 Gastro-esophageal reflux disease without esophagitis; F17.200 Nicotine dependence, unspecified, uncomplicated; Z88.0 Allergy status to penicillin; Z88.1 Allergy status to other antibiotic agents; Z79.52 Long term (current) use of systemic steroids; Z79.82 Long term (current) use of aspirin; Z79.899 Other long term (current) drug therapy
CPT/HCPCS: 71046; 80053; 83735; 83880; 84484; 85025; 93005; 93010; 99284-25; A9270